=== PATIENT | male | born 1950 | race Caucasian/White ===

== ENCOUNTER → 2024-07-09 08:02 | Outpatient (REF) | payer OTHER, SELFPAY | LOC: MRI 3T 08:02 | PROVIDERS: ATTENDING PHYSICIAN Orthopaedic Surgery; FAMILY PHYSICIAN Student in an Organized Health Care Education/Training Program | DX: M25.562 Pain in left knee (principal); M11.262 Other chondrocalcinosis, left knee | CPT/HCPCS: 73721 ==

== ENCOUNTER → 2024-08-24 14:08 | Outpatient (REF) | payer OTHER, SELFPAY | LOC: RAD 14:08 | PROVIDERS: ATTENDING PHYSICIAN Student in an Organized Health Care Education/Training Program | DX: R10.11 Right upper quadrant pain (principal) | CPT/HCPCS: 76700 ==

== ENCOUNTER → 2025-02-14 15:18 | Outpatient (REF) | payer MEDICARE, SELFPAY | LOC: RCS 15:18 | PROVIDERS: ATTENDING PHYSICIAN Internal Medicine Cardiovascular Disease; FAMILY PHYSICIAN Student in an Organized Health Care Education/Training Program | DX: I48.0 Paroxysmal atrial fibrillation (principal); Z95.3 Presence of xenogenic heart valve | CPT/HCPCS: 93306 ==

== ENCOUNTER 2025-04-14 06:15 | Day surgery (SDC) | payer MEDICARE, OTHER, SELFPAY ==
[2025-03-20 14:12] VITALS: BMI 29.0
[2025-04-14] VITALS (8 sets, daily range): BP systolic 122–143; BP diastolic 56–74; BMI 29.0
--- NOTE | 2025-04-14 08:23 | HP.FOC2 ---
Focused History & Physical
Chief Complaint
HPI:
Chief Complaint: Right inguinal hernia
HPI / Indication for Planned Procedure: Patient is a 74-year-old male recently seen in outpatient surgical evaluation secondary to a history of swelling and discomfort in the right inguinal region. Physical examination confirmed the presence of a
readily apparent right inguinal hernia for which he presents for operative correction today.
Relevant Past Medical History: Other (BPH, hypertension, P A-fib, therapeutic anticoagulation on warfarin, thrombocytopenia)
Relevant Social History: Negative
Relevant Family History: Negative
Relevant Past Surgical History: Positive for (Aortic valve replacement with ascending aortic aneurysm repair, open left inguinal hernia left hip replacement, right hip replacement, appendectomy)
Review of Systems
Review of Pertinent Systems: All Systems Negative
Medication
See Medication form for detailed medications: Yes
Medication List (including Herbals & OTC):
tamsulosin 0.4 mg capsule 0.4 mg PO HS 04/13/15
metoprolol tartrate 25 mg tablet 50 mg PO BID 10/30/16
atorvastatin 40 mg tablet 40 mg PO DAILY 04/07/25
calcium-magnesium 1,000 mg PO BID 04/07/25
famotidine 40 mg tablet (Pepcid) 40 mg PO DAILY PRN indigestion 04/07/25
dtdxjbaq-zsk-ijbtg acid 200 mcg-vit K1 60 mcg-lycopene 600 mcg tablet (Men's Multivitamin) 1 tab PO DAILY 04/07/25
omega 5-bzh-xpi-fish oil 900 mg-1,400 mg capsule,delayed release 915 cap PO DAILY 04/07/25
vitamin E 400 unit tablet 450 mg PO DAILY 04/07/25
warfarin 2.5 mg tablet (Jantoven) 2.5 mg PO HS 04/07/25
Medications Reviewed: Yes
Allergies and Reactions
Patient has Allergies: No
Noted Allergies and Reactions:
Allergy/AdvReac Type Severity Reaction Status Date / Time
No Known Allergies Allergy Verified 04/07/25 08:58
Pertinent Physical Exam
All Other Systems: Negative
Head/Neck: Normal
Lungs: Normal
Heart: Normal
Abdomen: Other (Reducible right inguinal hernia.) and Other (Right appendectomy surgical scar, left inguinal herniorrhaphy surgical scar)
Extremities: Normal
Neurological: Normal
Diagnosis / Assessment
74-year-old male presenting for scheduled operative correction symptomatic right inguinal hernia
Plan / Procedure
Robotic assisted laparoscopic repair of right inguinal hernia with mesh
Anesthesia/Sedation to be done by Anesthesia Provider: Yes
--- NOTE | 2025-04-14 08:27 | W.SUR.PREOP ---
Pre-Operative Surgical Note
-
I have examined this patient prior to the performance of the scheduled procedure.
The patient's condition is unchanged from the time of the current History and
Physical and the patient is able to undergo the scheduled procedure.
[2025-04-14] MEDS: TYLENOL 1000 MG PO (10:17)
[2025-04-14] MEDS: NORMOSOL-R/PLASMALYTE-A 1000 IV (10:20)
--- NOTE | 2025-04-14 12:53 | W.IMMPOSTOP ---
Addendum entered and electronically signed by Iván Montes MD 04/21/25 11:58:
#[id number]
Original Note:
Surgical Immed Post Op Note
-
Primary Surgeon: Iván Montes MD
Assisting Surgeon: Bryanna Young PA-c
Pre-op Diagnosis: Right inguinal hernia
Post-op Diagnosis: Right inguinal hernia; indirect
Procedure Performed: Robotic assisted laparoscopic repair right inguinal hernia with mesh; 3D max large mid weight
Anesthesia Type: GETA +0.25% Marcaine
Specimen / Cultures: None
Estimated Blood Loss: 6 mL
Complications: None immediate
Operative Findings: Right indirect inguinal hernia. Direct and femoral space normal. Lipomatous tissue of right spermatic cord reduced and excised. 3D max large mid weight mesh repair. Previous left inguinal herniorrhaphy intact, some
peritoneal/filmy sigmoid adhesions adjacent to hernia mesh. No additional incidental findings.
The assistance of Bryanna Young PA-C was required due to the complexity of the procedure. During the procedure Bryanna Young PA-C assisted with port placement, robotic instrumentation and suture material exchanges, and closure of the surgical incision
sites. I was present for the entirety of the operative procedure.
== END 2025-04-14 14:24 | disposition home or self-care (01) ==
LOC: SDS 06:15
PROVIDERS: ATTENDING PHYSICIAN Surgery; FAMILY PHYSICIAN Student in an Organized Health Care Education/Training Program
DX: K40.90 Unilateral inguinal hernia, without obstruction or gangrene, not specified as recurrent (principal)
CPT/HCPCS: 49650; C1781